=== PATIENT | male | born 1955 | race Caucasian/White ===

== ENCOUNTER 2019-07-29 09:48 | Emergency (ER) | payer OTHER ==
[~2019-07-29] VITALS: Ht 165.1 cm; Wt 43.1 kg
[2019-07-29 10:41] LABS: BASOPHILS ABSOLUTE AUTO 0.02 K/mm3 (0.00-0.23); BASOPHILS PERCENT AUTO 1 % (0-2); EOSINOPHILS ABSOLUTE AUTO 0.03 K/mm3 (0.00-0.68); EOSINOPHILS PERCENT AUTO 1 % (0-6); Hemoglobin 12.8 g/dL (13.5-17.5); IMMATURE GRAN ABSOLUTE AUTO 0.01 K/mm3 (0.00-0.10); IMMATURE GRAN PERCENT AUTO 0 % (0-1); LYMPHOCYTES PERCENT AUTO 32 % (21-46); MONOCYTES ABSOLUTE AUTO 0.57 K/mm3 (0.16-1.47); MONOCYTES PERCENT AUTO 15 % (4-13); Mean Corpuscular HGB Conc 33.7 g/dL (31.5-36.5); Mean Corpuscular Volume 98 fL (80-100); Mean Platelet Volume 12.4 fL (9.1-12.4); NEUTROPHILS ABSOLUTE AUTO 1.89 K/mm3 (1.96-9.15); NEUTROPHILS PERCENT AUTO 51 % (41-73); Platelet Count 87 K/mm3 (150-400); RDW Coefficient Variation 17.2 % (11.7-14.2); RDW Standard Deviation 62.3 fL (35.1-46.3); Red Blood Cell Count 3.88 M/mm3 (4.30-5.90); White Blood Cell Count 3.72 K/mm3 (4.00-11.30)
[2019-07-29 10:55] LABS: Albumin/Globulin Ratio 0.7 (0.8-1.8); Bilirubin, Total 0.5 mg/dL (0.1-1.0); Bun/Creatinine Ratio 26.7 (12.0-20.0); Creatinine, Blood 2.17 mg/dL (0.60-1.20); Globulin, Blood 4.4 g/dL (2.2-4.0); Potassium, Blood 4.4 mmol/L (3.5-5.5); Total Protein, Blood 7.4 g/dL (6.4-8.2)
[2019-07-29 11:19] LABS: Source, Urine Clean Catch
[2019-07-29 11:27] LABS: Appearance, Urine Clear (Clear); Bilirubin, Urine Neg (Neg); Blood, Urine Neg (Neg); Color, Urine Yellow (P-Yellow); Glucose Qualitative, Urine 2+ (Neg); Ketones, Urine 1+ (Neg); Leukocyte Esterase, Urine 1+ (Neg); Nitrite, Urine Neg (Neg); Protein, Urine Neg (Neg); Specific Gravity, Urine 1.015 (1.003-1.022); Urobilinogen, Urine 1+ (Normal)
[2019-07-29] MEDS ORDERED: ACET500 (11:58)
[2019-07-29] MEDS ORDERED: AMLO5 PO (11:59)
[2019-07-29] MEDS ORDERED: ALBU2.5V5 (11:59)
[2019-07-29] MEDS ORDERED: DIVA250ER PO (12:00)
[2019-07-29] MEDS ORDERED: BUDE10.22 INH (12:00)
[2019-07-29] MEDS ORDERED: Vitamin D2000 UNIT PO (12:00)
[2019-07-29 12:01] LABS: Bacteria Rare /hpf; Squamous Epithelial Cells Rare /hpf (Few); White Blood Cells, Urine 0-2 /hpf (0-5)
[2019-07-29] MEDS ORDERED: Zantac150 MG PO (12:01)
[2019-07-29] MEDS ORDERED: QUET300 PO (12:01)
== END 2019-07-29 13:46 | disposition home or self-care (01) ==
LOC: ER 09:48
PROVIDERS: Emergency Medicine
DX: R41.0 Disorientation, unspecified (principal); R53.1 Weakness; I10 Essential (primary) hypertension; F17.200 Nicotine dependence, unspecified, uncomplicated; Z88.5 Allergy status to narcotic agent; Z88.8 Allergy status to other drugs, medicaments and biological substances
CPT/HCPCS: 70450; 71046; 71250; 80053; 81001; 85025; 87086; 93005; 93010; 99285-25

== ENCOUNTER 2019-12-16 13:28 | Emergency (ER) | payer OTHER ==
[~2019-12-16] VITALS: Ht 160 cm; Wt 43.5 kg
[~2019-12-16 13:28] MED LIST: ACET500; ALBU2.5V5; AMLO5 PO; BUDE10.22 INH; DIVA250ER PO; Percocet 5-3251 EACH PO; QUET300 PO; Vitamin D2000 UNIT PO; Zantac150 MG PO
[2019-12-16] MEDS ORDERED: Vitamin D2000 UNIT PO (15:38)
[2019-12-16] MEDS ORDERED: DIVA250ER PO (15:38)
[2019-12-16] MEDS ORDERED: IBUP600 PO (16:44)
== END 2019-12-16 17:12 | disposition home or self-care (01) ==
LOC: ER 13:28
DX: S32.302A Unspecified fracture of left ilium, initial encounter for closed fracture (principal); I10 Essential (primary) hypertension; J44.9 Chronic obstructive pulmonary disease, unspecified; W17.89XA Other fall from one level to another, initial encounter
CPT/HCPCS: 36415; 72192; 73502; 99284-25; J1885

== ENCOUNTER 2020-09-29 08:53 | Inpatient (IN) | payer OTHER, MEDICARE ==
[~2020-09-29] VITALS: Ht 165.1 cm; Wt 41.7 kg
[~2020-09-29 08:53] MED LIST changes: +IBUP600 PO; -QUET300 PO
[2020-09-29 10:29] LABS: Hematocrit 40.2 % (37.0-53.0); Hemoglobin 13.2 g/dL (13.5-17.5); Mean Corpuscular HGB Conc 32.8 g/dL (31.5-36.5); Mean Corpuscular Volume 94 fL (80-100); Mean Platelet Volume 11.3 fL (9.1-12.4); Platelet Count 111 K/mm3 (150-400); RDW Coefficient Variation 15.1 % (11.7-14.2); RDW Standard Deviation 52.4 fL (35.1-46.3); Red Blood Cell Count 4.26 M/mm3 (4.30-5.90); White Blood Cell Count 8.42 K/mm3 (4.00-11.30)
[2020-09-29 10:35] LABS: International Normalized Ratio 0.93
[2020-09-29 10:38] LABS: Alanine Aminotransfer (ALT/SGP 16 U/L (12-78); Albumin, Blood 2.6 g/dL (3.4-5.0); Albumin/Globulin Ratio 0.6 (0.8-1.8); Alk Phos 81 U/L (50-136); Anion Gap 7 mmol/L (6-16); Aspartate Aminotrans (AST/SGOT 25 U/L (12-37); Bilirubin, Total 0.3 mg/dL (0.1-1.0); Blood Urea Nitrogen 86 mg/dL (8-24); Bun/Creatinine Ratio 19.5 (12.0-20.0); CO2, Blood 23 mmol/L (21-32); Calcium, Blood 8.1 mg/dL (8.5-10.1); Chloride, Blood 108 mmol/L (98-108); Creatinine, Blood 4.41 mg/dL (0.60-1.20); Ethanol (Alcohol), Blood, Med <3 mg/dL; Globulin, Blood 4.6 g/dL (2.2-4.0); Glomerular Filtration Rate 14 (60-); Glucose, Blood 79 mg/dL (70-99); Potassium, Blood 5.2 mmol/L (3.5-5.5); Sodium, Blood 138 mmol/L (136-145); Total Protein, Blood 7.2 g/dL (6.4-8.2)
[2020-09-29 11:06] LABS: BAND PERCENT MAN 10 % (0-8); BASOPHILS PERCENT MAN 0 % (0-2); EOSINOPHILS ABSOLUTE MAN 0.08 K/mm3 (0.00-0.68); EOSINOPHILS PERCENT MAN 1 % (0-6); LYMPHOCYTES ABSOLUTE MAN 1.34 K/mm3 (0.84-5.20); LYMPHOCYTES PERCENT MAN 16 % (21-46); MONOCYTES ABSOLUTE MAN 1.09 K/mm3 (0.16-1.47); MONOCYTES PERCENT MAN 13 % (4-13); NEUTROPHILS ABSOLUTE MAN 5.89 K/mm3 (1.96-9.15); SEG NEUTROPHILS PERCENT MAN 60 % (41-73); TOTAL CELLS COUNTED 100
[2020-09-29 12:28] LABS: U Amphetamine Screen Not Detected; U Barbituate Screen Not Detected; U Benzodiazapine Screen Not Detected; U Buprenorphine Screen Not Detected; U Cannabinoids Screen Not Detected; U Cocaine Screen Not Detected; U Methadone Screen Not Detected; U Methamphetamine Screen Not Detected; U Opiates Screen Not Detected; U Oxycodone Screen Not Detected; U Phencyclidine Screen Not Detected; U Propoxyphene Screen Not Detected
[2020-09-29 14:11] LABS: Source, Urine Clean Catch
[2020-09-29 14:17] LABS: Appearance, Urine Clear (Clear); Bilirubin, Urine Neg (Neg); Blood, Urine 1+ (Neg); Color, Urine Yellow (P-Yellow); Glucose Qualitative, Urine Neg (Neg); Ketones, Urine Neg (Neg); Leukocyte Esterase, Urine Neg (Neg); Nitrite, Urine Neg (Neg); Protein, Urine 1+ (Neg); Specific Gravity, Urine 1.015 (1.003-1.022); Urobilinogen, Urine NORM (Normal)
[2020-09-29 14:46] LABS: WBC Cast 0-2 /lpf (0)
[2020-09-29 14:47] LABS: Bacteria Few /hpf; Renal Epithelial Few /hpf (0-Rare); Squamous Epithelial Cells Few /hpf (Few)
[2020-09-29] MEDS ORDERED: Vitamin D2000 UNIT PO (15:37)
[2020-09-29] MEDS ORDERED: DIVA250ER PO ×2 (15:37→15:38)
[2020-09-29] MEDS ORDERED: QUET300 PO (15:37)
[2020-09-29] MEDS ORDERED: LISI5 PO (15:38)
--- NOTE | 2020-09-29 19:05 | NUR ---
SHIFT SUMMARY: PATIENT ADMIT (INPATIENT) FROM ED THIS SHIFT. PT ALERT; [place]; CONFUSED; CALM AND COOPERATIVE WITH CARE. LUNGS DIM; RT NOTIFIED OF CONT BIOX ORDER. SCATTERED ABRASIONS R/T GROUND LEVEL FALL 3X DAYS AGO. IV REHYDRATION CONTINUING. REPORT GIVEN TO ONCOMING RN.
[2020-09-29 20:23] LABS: Influenza A, PCR Negative (NEGATIVE); Influenza B, PCR Negative (NEGATIVE); Resp Syncytial Virus, PCR Negative (NEGATIVE); SARS-Cov-2 (COVID-19) PCR, MMC Negative (NEGATIVE)
--- NOTE | 2020-09-30 04:16 | NUR ---
SUMMARY PT HAD NO ACUTE ISSUES NOTED. PT WOULD BENEFIT FROM SPEECH EVAL. PT APPEARS TO BE A ASPIRATION RISK. PT HAS BEEN VOIDING VIA URINAL W/ HELP. PT CONFUSED BUT COOPERATIVE. PT HAS BEEN SLEEPING FOR MOST OF SHIFT. PT CURRENTLY SLEEPING AND IN NO DISTRESS. CALL LIGHT IN REACH AND BED ALARM ON.
[2020-09-30 05:13] LABS: BASOPHILS ABSOLUTE AUTO 0.02 K/mm3 (0.00-0.23); BASOPHILS PERCENT AUTO 0 % (0-2); EOSINOPHILS ABSOLUTE AUTO 0.01 K/mm3 (0.00-0.68); EOSINOPHILS PERCENT AUTO 0 % (0-6); Hematocrit 34.3 % (37.0-53.0); Hemoglobin 11.3 g/dL (13.5-17.5); IMMATURE GRAN ABSOLUTE AUTO 0.05 K/mm3 (0.00-0.10); IMMATURE GRAN PERCENT AUTO 1 % (0-1); LYMPHOCYTES ABSOLUTE AUTO 1.07 K/mm3 (0.84-5.20); LYMPHOCYTES PERCENT AUTO 19 % (21-46); MONOCYTES ABSOLUTE AUTO 0.59 K/mm3 (0.16-1.47); MONOCYTES PERCENT AUTO 11 % (4-13); Mean Corpuscular HGB 31.4 pg (26.0-34.0); Mean Corpuscular HGB Conc 32.9 g/dL (31.5-36.5); Mean Corpuscular Volume 95 fL (80-100); NEUTROPHILS ABSOLUTE AUTO 3.79 K/mm3 (1.96-9.15); NEUTROPHILS PERCENT AUTO 69 % (41-73); Platelet Count 77 K/mm3 (150-400); RDW Coefficient Variation 15.2 % (11.7-14.2); RDW Standard Deviation 53.6 fL (35.1-46.3); White Blood Cell Count 5.53 K/mm3 (4.00-11.30)
[2020-09-30 05:33] LABS: Albumin/Globulin Ratio 0.6 (0.8-1.8); Bilirubin, Total 0.3 mg/dL (0.1-1.0); Bun/Creatinine Ratio 26.7 (12.0-20.0); Calcium, Blood 7.8 mg/dL (8.5-10.1); Creatinine, Blood 2.73 mg/dL (0.60-1.20); Globulin, Blood 3.6 g/dL (2.2-4.0); Magnesium, Blood 2.5 mg/dL (1.6-2.4); Potassium, Blood 5.4 mmol/L (3.5-5.5); Total Protein, Blood 5.6 g/dL (6.4-8.2)
--- NOTE | 2020-09-30 15:46 | NUR ---
SUMMARY PT IS WEAK/FATIGUED, THIN FRAIL. BUE EXTREMELY WEAK, UNCOORDINATED. HE REQUIRES ASSIST TO EAT/DRINK W/O SPILLING. HE IS VERY [place]', CAREGIVER WAS ABLE TO FIND ONE OF HIS HEARING AIDES @ HOME & BROUGHT TO HOSP, MINIMAL IMPROVEMENT. SHE STTE UNABLE TO LOCATE HIS DENTURES, DIET CHANGED TO SOFT, FINGER FOODS. SHE STATE HIS MENTATION HAS IMPROVED SOMEWHAT FROM ADMIT. ORIENTED X2. HE IS PLEASANT/COOPERATIVE. DR WALKER STATE ENCEPHALOPATHY, HOPEFUL MENTATION WILL CONTINUE TO IMPROVE. INCREASE LR INFUSION TO 200ML/HR. VSS.
--- NOTE | 2020-09-30 19:46 | NUR ---
AWAKE, ASSISTED WITH URINAL. HARD OF HEARING. VERY UNSTEADY AND SHAKY WHEN SITTING AT BEDSIDE TO VOID. ASSISTED BACK TO BED. IVF INFUSING PER MD ORDERS -SEE MAR FOR DETAILS. CALL LIGHT IN REACH. BED ALARM ON. CAMERA ON.
--- NOTE | 2020-10-01 04:32 | NUR ---
SHIFT SUMMARY WAS AWAKE AT SHIFT COMMENCE, MADE A FEW ATTEMPTS TO GET OUT OF BED TO VOID, ASSISTED WITH URINAL. HAS BEEN RESTING QUIETLY WITH FEW INTERRUPTIONS SINCE. IVF OF LR INFUSING AT 200 ML/HR PER MD ORDERS. CALL LIGHT IN REACH. BED ALARM ON
[2020-10-01 06:35] LABS: BASOPHILS ABSOLUTE AUTO 0.04 K/mm3 (0.00-0.23); BASOPHILS PERCENT AUTO 1 % (0-2); EOSINOPHILS ABSOLUTE AUTO 0.01 K/mm3 (0.00-0.68); EOSINOPHILS PERCENT AUTO 0 % (0-6); Hematocrit 36.4 % (37.0-53.0); Hemoglobin 12.2 g/dL (13.5-17.5); IMMATURE GRAN ABSOLUTE AUTO 0.13 K/mm3 (0.00-0.10); IMMATURE GRAN PERCENT AUTO 2 % (0-1); LYMPHOCYTES ABSOLUTE AUTO 1.37 K/mm3 (0.84-5.20); LYMPHOCYTES PERCENT AUTO 21 % (21-46); MONOCYTES ABSOLUTE AUTO 1.21 K/mm3 (0.16-1.47); MONOCYTES PERCENT AUTO 18 % (4-13); Mean Corpuscular HGB 31.2 pg (26.0-34.0); Mean Corpuscular HGB Conc 33.5 g/dL (31.5-36.5); Mean Corpuscular Volume 93 fL (80-100); Mean Platelet Volume 11.9 fL (9.1-12.4); NEUTROPHILS ABSOLUTE AUTO 3.86 K/mm3 (1.96-9.15); NEUTROPHILS PERCENT AUTO 58 % (41-73); Platelet Count 66 K/mm3 (150-400); RDW Coefficient Variation 15.1 % (11.7-14.2); RDW Standard Deviation 51.8 fL (35.1-46.3); Red Blood Cell Count 3.91 M/mm3 (4.30-5.90); White Blood Cell Count 6.62 K/mm3 (4.00-11.30)
[2020-10-01 06:41] LABS: Bun/Creatinine Ratio 25.2 (12.0-20.0); Calcium, Blood 8.4 mg/dL (8.5-10.1); Creatinine, Blood 1.63 mg/dL (0.60-1.20); Potassium, Blood 4.6 mmol/L (3.5-5.5)
--- NOTE | 2020-10-01 15:21 | NUR ---
SUMMARY PT CONTINUES WEAK/FATIGUED, HAS BEEN UP FOR PT/OT & SIT UP ON BEDSIDE TO VOID OTHERWISE HE DECLINES OOB, REFUSES TO SIT UP IN CHAIR. WEAKNESS SOMEWHAT IMPROVED FROM PREVIOUS DAY. HE IS THIN/FRAIL, POOR DENTITION, POOR APPETITE. 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 ENCOURAGING ENSURE. AFFECT FLAT, MINIMAL VERBAL. HX SCHIZOPHRENIA, DEMENTIA. DR WALKER STATE UREMIA ENCEPHALOPATHY, GFR, BUN HAVE IMPROVED TODAY. DECREASE LR INFUSION TO 100 ML/HR. LOW GRADE TEMP THIS AM 100.1, TYLENOL GIVEN, 98.2. VSS.
--- NOTE | 2020-10-01 22:31 | NUR ---
HAS BEEN AWKAE OFTEN, CALLING OUT "I NEED TO PEE", ASSISTED WITH URINAL EACH TIME. VOIDING ABOUT 40 - 100 ML EACH VOIDING. IVF OF LR INFUSING AT 100 ML/HR PER MD ORDERS. CALL LIGHT IN REACH
--- NOTE | 2020-10-02 04:11 | NUR ---
SHIF SUMMARY AWAKE AT INTERVALS TO VOID, CONTINUES TO CALL OUT IN SOMEWHAT OF A PANIC WHILE DOING SO. IV OF LR INFUSING AT 100 ML/HR. HAS BEEN USING THE URINAL WITH ASSIST AND AT TIMES INCONT AND CHANGED. CURRENTLY RESTING QUIETLY. NO NOTED S/S OF ACUTE DISTRESS. CALL LIGHT IN REACH
[2020-10-02 05:21] LABS: BASOPHILS ABSOLUTE AUTO 0.05 K/mm3 (0.00-0.23); BASOPHILS PERCENT AUTO 1 % (0-2); EOSINOPHILS ABSOLUTE AUTO 0.02 K/mm3 (0.00-0.68); EOSINOPHILS PERCENT AUTO 0 % (0-6); Hematocrit 37.5 % (37.0-53.0); Hemoglobin 12.6 g/dL (13.5-17.5); IMMATURE GRAN ABSOLUTE AUTO 0.25 K/mm3 (0.00-0.10); IMMATURE GRAN PERCENT AUTO 3 % (0-1); LYMPHOCYTES ABSOLUTE AUTO 1.46 K/mm3 (0.84-5.20); LYMPHOCYTES PERCENT AUTO 18 % (21-46); MONOCYTES ABSOLUTE AUTO 1.84 K/mm3 (0.16-1.47); MONOCYTES PERCENT AUTO 22 % (4-13); Mean Corpuscular HGB 30.8 pg (26.0-34.0); Mean Corpuscular HGB Conc 33.6 g/dL (31.5-36.5); Mean Corpuscular Volume 92 fL (80-100); Mean Platelet Volume 10.7 fL (9.1-12.4); NEUTROPHILS PERCENT AUTO 56 % (41-73); Platelet Count 55 K/mm3 (150-400); RDW Coefficient Variation 14.6 % (11.7-14.2); RDW Standard Deviation 49.1 fL (35.1-46.3); Red Blood Cell Count 4.09 M/mm3 (4.30-5.90); White Blood Cell Count 8.22 K/mm3 (4.00-11.30)
[2020-10-02 05:45] LABS: Anion Gap 6 mmol/L (6-16); Blood Urea Nitrogen 24 mg/dL (8-24); Bun/Creatinine Ratio 19.5 (12.0-20.0); CO2, Blood 28 mmol/L (21-32); Calcium, Blood 8.5 mg/dL (8.5-10.1); Chloride, Blood 102 mmol/L (98-108); Creatinine, Blood 1.23 mg/dL (0.60-1.20); Glomerular Filtration Rate >60 (60-); Glucose, Blood 83 mg/dL (70-99); Sodium, Blood 136 mmol/L (136-145)
[2020-10-02] MEDS ORDERED: ACET325 PO (14:36)
[2020-10-02] MEDS ORDERED: NIFE30ER PO (14:37)
[2020-10-02] MEDS ORDERED: IPRAT-ALBUT 0.5-3 ML INH (14:38)
[2020-10-02 15:54] LABS: Influenza A, PCR Negative (NEGATIVE); Influenza B, PCR Negative (NEGATIVE); Resp Syncytial Virus, PCR Negative (NEGATIVE); SARS-Cov-2 (COVID-19) PCR, MMC Negative (NEGATIVE)
[2020-10-02 16:40] LABS: Source, Urine Voided
[2020-10-02 16:42] LABS: Appearance, Urine Clear (Clear); Bilirubin, Urine Neg (Neg); Blood, Urine Neg (Neg); Color, Urine Yellow (P-Yellow); Glucose Qualitative, Urine Neg (Neg); Ketones, Urine 1+ (Neg); Leukocyte Esterase, Urine Neg (Neg); Nitrite, Urine Neg (Neg); Protein, Urine Neg (Neg); Specific Gravity, Urine 1.015 (1.003-1.022); Urobilinogen, Urine NORM (Normal)
--- NOTE | 2020-10-02 18:46 | NUR ---
PT IS IN BED RESTING, ATE 5-10% OF EACH MEAL, IS AFEBRILE AFTER MEDS, URINARY URGENCY CONTINUES QHOUR WITH 25-50 ML EACH OUTPUT. PT OREINTED TO SELF X1 AND PER CAREGIVER BELOW BASELINE (INDEPENDENT AT HOME). WAITING FOR UA RESULTS. STAFF WILL CONT. TO MONITOR FOR CHANGES.
--- NOTE | 2020-10-03 04:11 | NUR ---
SHIFT SUMMARY NO ACUTE CHANGES THIS SHIFT. PT CALLS OUT "I NEED TO PEE" OFTEN IN A PANICKED TONE, ONLY VOIDING 25-50ML AT A TIME. PT TRIED TO GET OOB ONE TIME STATING "I HAVE TO GO TO THE EMERGENCY ROOM." WHEN REORIENTED TO ROOM, PT CALMED AND WAS ABLE TO GET BACK INTO BED AND GO TO SLEEP. PT IS CURRENTLY LAYING IN BED WITH EYES CLOSED, EVEN AND UNLABORED RESPIRATIONS. BED IS IN LOWERED POSITION WITH ALARM IN PLACE. CALL LIGHT AND PERSONAL ITEMS WITH IN REACH. NO APPARENT NEEDS OR DISTRESS AT THIS TIME, WILL CONTINUE TO MONITOR UNTIL REPORT GIVEN TO DAY RN.
[2020-10-03 05:16] LABS: BASOPHILS ABSOLUTE AUTO 0.06 K/mm3 (0.00-0.23); BASOPHILS PERCENT AUTO 1 % (0-2); EOSINOPHILS ABSOLUTE AUTO 0.09 K/mm3 (0.00-0.68); EOSINOPHILS PERCENT AUTO 1 % (0-6); Hematocrit 32.9 % (37.0-53.0); Hemoglobin 11.3 g/dL (13.5-17.5); IMMATURE GRAN ABSOLUTE AUTO 0.24 K/mm3 (0.00-0.10); IMMATURE GRAN PERCENT AUTO 4 % (0-1); LYMPHOCYTES ABSOLUTE AUTO 1.67 K/mm3 (0.84-5.20); LYMPHOCYTES PERCENT AUTO 25 % (21-46); MONOCYTES ABSOLUTE AUTO 1.16 K/mm3 (0.16-1.47); MONOCYTES PERCENT AUTO 17 % (4-13); Mean Corpuscular HGB 31.7 pg (26.0-34.0); Mean Corpuscular HGB Conc 34.3 g/dL (31.5-36.5); Mean Corpuscular Volume 92 fL (80-100); Mean Platelet Volume 10.6 fL (9.1-12.4); NEUTROPHILS ABSOLUTE AUTO 3.54 K/mm3 (1.96-9.15); NEUTROPHILS PERCENT AUTO 52 % (41-73); RDW Coefficient Variation 14.3 % (11.7-14.2); RDW Standard Deviation 48.2 fL (35.1-46.3); Red Blood Cell Count 3.56 M/mm3 (4.30-5.90); White Blood Cell Count 6.76 K/mm3 (4.00-11.30)
[2020-10-03 05:27] LABS: Platelet Count 41 K/mm3 (150-400)
[2020-10-03 05:47] LABS: Anion Gap 5 mmol/L (6-16); Blood Urea Nitrogen 24 mg/dL (8-24); Bun/Creatinine Ratio 19.2 (12.0-20.0); CO2, Blood 29 mmol/L (21-32); Calcium, Blood 8.5 mg/dL (8.5-10.1); Chloride, Blood 104 mmol/L (98-108); Creatinine, Blood 1.25 mg/dL (0.60-1.20); Glomerular Filtration Rate >60 (60-); Glucose, Blood 84 mg/dL (70-99); Potassium, Blood 3.7 mmol/L (3.5-5.5); Sodium, Blood 138 mmol/L (136-145)
--- NOTE | 2020-10-03 06:42 | NUR ---
CRITICAL LAB RESULT DR. LIMA CALLED BACK, NO NEW ORDERS.
--- NOTE | 2020-10-03 16:43 | NUR ---
SHIFT SUMMARY PT SLEEPING FOR FIRST PART OF SHIFT, WAKING HOURLY TO URGENTLY VOID SMALL AMOUNT OF URINE. VSS. PT BECAME MORE ALERT WITH HIS CAREGIVER IN THE ROOM. AT THAT TIME PATIENT WAS ABLE TO NAME THE STREET HE LIVES ON AND NAMES OF PETS. CONTINUES TO HAVE POOR APPETITE. IV PATENT AND INFUSING PER EMAR. BED IN LOW POSITION, CALL LIGHT WITHIN REACH. BED ALARM ON.
--- NOTE | 2020-10-04 04:09 | NUR ---
SHIFT SUMMARY NO ACUTE CHANGES THIS SHIFT. PT HAS SLEPT WELL T/O NIGHT, WITH OCCASIONAL EPISODES OF CALLING OUT "I NEED TO PEE." OTHERWISE NO OTHER COMPLAINTS. PT IS LAYING IN BED WITH EYES CLOSED, EVEN AND UNLABORED RESPIRATIONS. BED IN LOWERED POSITION WITH ALARM IN PLACE. CALL LIGHT AND PERSONAL ITEMS WITH IN REACH. NO APPARENT NEEDS OR DISTRESS AT THIS TIME, WILL CONTINUE TO MONITOR UNTIL REPORT GIVEN TO DAY RN.
[2020-10-04 04:57] LABS: BASOPHILS ABSOLUTE AUTO 0.03 K/mm3 (0.00-0.23); BASOPHILS PERCENT AUTO 0 % (0-2); EOSINOPHILS ABSOLUTE AUTO 0.08 K/mm3 (0.00-0.68); EOSINOPHILS PERCENT AUTO 1 % (0-6); Hematocrit 27.6 % (37.0-53.0); Hemoglobin 9.2 g/dL (13.5-17.5); IMMATURE GRAN PERCENT AUTO 3 % (0-1); LYMPHOCYTES ABSOLUTE AUTO 1.71 K/mm3 (0.84-5.20); LYMPHOCYTES PERCENT AUTO 22 % (21-46); MONOCYTES ABSOLUTE AUTO 1.12 K/mm3 (0.16-1.47); MONOCYTES PERCENT AUTO 14 % (4-13); Mean Corpuscular HGB 31.1 pg (26.0-34.0); Mean Corpuscular HGB Conc 33.3 g/dL (31.5-36.5); Mean Corpuscular Volume 93 fL (80-100); Mean Platelet Volume 9.6 fL (9.1-12.4); NEUTROPHILS ABSOLUTE AUTO 4.64 K/mm3 (1.96-9.15); NEUTROPHILS PERCENT AUTO 60 % (41-73); Platelet Count 51 K/mm3 (150-400); RDW Coefficient Variation 14.5 % (11.7-14.2); RDW Standard Deviation 49.9 fL (35.1-46.3); Red Blood Cell Count 2.96 M/mm3 (4.30-5.90); White Blood Cell Count 7.78 K/mm3 (4.00-11.30)
[2020-10-04 13:06] LABS: BASOPHILS ABSOLUTE AUTO 0.04 K/mm3 (0.00-0.23); BASOPHILS PERCENT AUTO 1 % (0-2); EOSINOPHILS ABSOLUTE AUTO 0.14 K/mm3 (0.00-0.68); EOSINOPHILS PERCENT AUTO 2 % (0-6); Hematocrit 31.3 % (37.0-53.0); Hemoglobin 10.6 g/dL (13.5-17.5); IMMATURE GRAN ABSOLUTE AUTO 0.19 K/mm3 (0.00-0.10); IMMATURE GRAN PERCENT AUTO 2 % (0-1); LYMPHOCYTES ABSOLUTE AUTO 1.11 K/mm3 (0.84-5.20); LYMPHOCYTES PERCENT AUTO 13 % (21-46); MONOCYTES ABSOLUTE AUTO 1.27 K/mm3 (0.16-1.47); MONOCYTES PERCENT AUTO 14 % (4-13); Mean Corpuscular HGB 31.6 pg (26.0-34.0); Mean Corpuscular HGB Conc 33.9 g/dL (31.5-36.5); Mean Corpuscular Volume 93 fL (80-100); Mean Platelet Volume 10.7 fL (9.1-12.4); NEUTROPHILS ABSOLUTE AUTO 6.08 K/mm3 (1.96-9.15); NEUTROPHILS PERCENT AUTO 69 % (41-73); Platelet Count 71 K/mm3 (150-400); RDW Coefficient Variation 14.4 % (11.7-14.2); RDW Standard Deviation 49.1 fL (35.1-46.3); Red Blood Cell Count 3.35 M/mm3 (4.30-5.90); White Blood Cell Count 8.83 K/mm3 (4.00-11.30)
--- NOTE | 2020-10-04 14:48 | NUR ---
Clinical Visit: Pt admitted with altered mental status. Palliative consult to address code status and advanced care planning. Pt is sitting up in bed. He smiles. He is wearing glasses and one hearing aid. He is conversing with his caregiver, Flavia. The appear to have an easy rapport. Discussed with Flavia: Pt usually is ambulatory independently. He is able to eat food, take showers, independently. He is not incontinent at baseline. He has a poor appetite at home, but refuses to take appetite stimulators. Reviewed code status. Flavia reports that the pt decided on full code a long time ago. She states he has told her that he wants to live. Reviewed POLST form and advance directives. She does not want to fill out a POLST form for him at this time, since she knows his wishes. Reviewed advance directive document. Flavia believes this to be a more appropriate form for him to fill out after this is explained to her. She agrees to take the form home to address it when he is feeling better. Instructed that the form also has a place to appoint healthcare representatives. She reports that this would be helpful. No other concerns at this time. No follow up needed at this time unless other issues arise.
--- NOTE | 2020-10-04 17:13 | NUR ---
NO ACUTE CHANGES THIS SHIFT. HE HAS BEEN QUIET MOST OF THE SHIFT WITH NO COMPLAINTS. HE WILL ON OCCASSION CALL OUT THAT HE HAS TO PEE IN WHICH HE IS HELPED WITH THE URINAL. CAREGIVER WAS IN ROOM THIS SHIFT. CALL LIGHT IN REACH.
--- NOTE | 2020-10-05 04:56 | NUR ---
10/05/20 0500 PT SLEEPING WELL THIS SHIFT. DENIES ANY DISCOMFORT. VITALS STABLE. CONDOM CATH APPLIED EARLIER AND WORKING WELL TO COLLECT URINE. JAS-CARE GIVEN PRN. ORAL INTAKE BETTER TONIGHT FROM PREVIOUS NIGHT. UNEVENTFUL NIGHT.
[2020-10-05 05:22] LABS: BASOPHILS ABSOLUTE AUTO 0.04 K/mm3 (0.00-0.23); BASOPHILS PERCENT AUTO 0 % (0-2); EOSINOPHILS ABSOLUTE AUTO 0.25 K/mm3 (0.00-0.68); EOSINOPHILS PERCENT AUTO 3 % (0-6); Hematocrit 29.8 % (37.0-53.0); IMMATURE GRAN ABSOLUTE AUTO 0.18 K/mm3 (0.00-0.10); IMMATURE GRAN PERCENT AUTO 2 % (0-1); LYMPHOCYTES ABSOLUTE AUTO 1.69 K/mm3 (0.84-5.20); LYMPHOCYTES PERCENT AUTO 18 % (21-46); MONOCYTES ABSOLUTE AUTO 1.25 K/mm3 (0.16-1.47); MONOCYTES PERCENT AUTO 13 % (4-13); Mean Corpuscular HGB 31.5 pg (26.0-34.0); Mean Corpuscular HGB Conc 33.6 g/dL (31.5-36.5); Mean Corpuscular Volume 94 fL (80-100); Mean Platelet Volume 11.4 fL (9.1-12.4); NEUTROPHILS ABSOLUTE AUTO 6.21 K/mm3 (1.96-9.15); NEUTROPHILS PERCENT AUTO 65 % (41-73); Platelet Count 96 K/mm3 (150-400); RDW Coefficient Variation 14.1 % (11.7-14.2); RDW Standard Deviation 48.2 fL (35.1-46.3); Red Blood Cell Count 3.17 M/mm3 (4.30-5.90); White Blood Cell Count 9.62 K/mm3 (4.00-11.30)
[2020-10-05 05:32] LABS: Anion Gap 4 mmol/L (6-16); Blood Urea Nitrogen 24 mg/dL (8-24); Bun/Creatinine Ratio 24.1 (12.0-20.0); CO2, Blood 33 mmol/L (21-32); Calcium, Blood 8.5 mg/dL (8.5-10.1); Chloride, Blood 101 mmol/L (98-108); Glomerular Filtration Rate >60 (60-); Glucose, Blood 84 mg/dL (70-99); Potassium, Blood 3.8 mmol/L (3.5-5.5); Sodium, Blood 138 mmol/L (136-145)
[2020-10-05 05:42] LABS: BASOPHILS PERCENT MAN 0 % (0-2); EOSINOPHILS ABSOLUTE MAN 0.38 K/mm3 (0.00-0.68); EOSINOPHILS PERCENT MAN 4 % (0-6); LYMPHOCYTES ABSOLUTE MAN 1.05 K/mm3 (0.84-5.20); LYMPHOCYTES PERCENT MAN 11 % (21-46); MONOCYTES ABSOLUTE MAN 1.05 K/mm3 (0.16-1.47); MONOCYTES PERCENT MAN 11 % (4-13); NEUTROPHILS ABSOLUTE MAN 7.11 K/mm3 (1.96-9.15); SEG NEUTROPHILS PERCENT MAN 74 % (41-73); TOTAL CELLS COUNTED 100
--- NOTE | 2020-10-05 16:37 | NUR ---
SHIFT SUMMARY- PT A/OX1 SELF ONLY. PT COOPERATIVE WITH CARE. PT DENIES ANY COMPLAINTS T/O THE DAY. LS CLEAR/ DIMINISHED, ON RA. MOIST NPC. CONDOM CATH IN PLACE DRAINING CLEAR YELLOW URINE. POSSIBLE D/C TO SNF TOMORROW.
--- NOTE | 2020-10-06 07:29 | NUR ---
10/06/20 0500 PT REFUSED TO DRINK MORE THAN COUPLE OF SIPS OF FLUID AT A TIME. STRESSED IMPORTANCE OF NUTRITION AND HYDRATION BUT UNINTERESTED. VITALS STABLE. TURNED Q 2 HOURS. CONDOM CATH FELL OFF TWICE THIS SHIFT AND NEW ONE APPLIED. SLEPT POORLY AND INSISTED ON WATCHING TV MOST OF NIGHT.
[2020-10-06 15:03] LABS: Influenza A, PCR Negative (NEGATIVE); Influenza B, PCR Negative (NEGATIVE); Resp Syncytial Virus, PCR Negative (NEGATIVE); SARS-Cov-2 (COVID-19) PCR, MMC Negative (NEGATIVE)
--- NOTE | 2020-10-06 16:39 | NUR ---
REPORT GIVEN TO SASHA VERDIN @ [facility] @ 5502. IV HAS BEEN REMOVED, PT IS DRESSED AND WAITING FOR TRANSPORT.
--- NOTE | 2020-10-06 17:39 | NUR ---
PT DISCHARGED @ APPROX 1735 BY [facility] TO [facility]. PT AMBULATED WELL TO WHEELCHAIR AND BELONGINGS WERE HANDED TO PT. PT HAD HIS HEARING AID IN HIS LEFT EAR AND HIS DENTURES IN AT TIME OF DISCHARGE. PAPERWORK WAS GIVEN TO TRANSPORT. IV SITE WAS DC'D PRIOR TO TRANSPORT ARRIVING AND SITE LOOKED TO BE WITH[facility]ORMAL LIMITS [facility] REPORT WAS CALLED AT APPROX 1630 TO SASHA VERDIN @ [facility].
== END 2020-10-06 17:38 | DRG 682 ==
LOC: ER 08:53 → MEDS 15:51 → ERHOLD 15:51 → MEDS 17:52
PROVIDERS: Emergency Medicine; Family Medicine; Hospitalist; Physician Assistant; ADMIT Internal Medicine
DX: N17.9 Acute kidney failure, unspecified (principal); E43 Unspecified severe protein-calorie malnutrition; G92 Toxic encephalopathy; Z68.1 Body mass index [BMI] 19.9 or less, adult; T39.311A Poisoning by propionic acid derivatives, accidental (unintentional), initial encounter; Z20.828 Contact with and (suspected) exposure to other viral communicable diseases; N18.4 Chronic kidney disease, stage 4 (severe); F20.9 Schizophrenia, unspecified; I12.9 Hypertensive chronic kidney disease with stage 1 through stage 4 chronic kidney disease, or unspecified chronic kidney disease; D63.1 Anemia in chronic kidney disease; D69.6 Thrombocytopenia, unspecified; F01.50 Vascular dementia, unspecified severity, without behavioral disturbance, psychotic disturbance, mood disturbance, and anxiety; Z87.891 Personal history of nicotine dependence; J43.9 Emphysema, unspecified; R50.9 Fever, unspecified
CPT/HCPCS: 0241U; 36415; 70450; 71045; 72100; 76700; 80048; 80053; 81001; 81003; 83735; 85025; 85610; 85730; 87040; 87086; 92610; 93005; 93010; 94640; 94760; 94762; 96360; 96361; 97110; 97116; 97162; 97166; 97530; 97535; 99285-25; A9270; G0480; J1644; J7030; J7120; Q2038

== ENCOUNTER 2021-12-03 08:00 | Emergency (ER) | payer OTHER ==
[~2021-12-03] VITALS: Ht 165.1 cm; Wt 45.4 kg
[~2021-12-03 08:00] MED LIST changes: +ACET325 PO; +IPRAT-ALBUT 0.5-3 ML INH; +LISI5 PO; +NIFE30ER PO; +QUET300 PO
[2021-12-03 09:12] LABS: BASOPHILS ABSOLUTE AUTO 0.02 K/mm3 (0.00-0.23); BASOPHILS PERCENT AUTO 0 % (0-2); EOSINOPHILS PERCENT AUTO 0 % (0-6); Hematocrit 39.3 % (37.0-53.0); IMMATURE GRAN ABSOLUTE AUTO 0.02 K/mm3 (0.00-0.10); IMMATURE GRAN PERCENT AUTO 0 % (0-1); LYMPHOCYTES ABSOLUTE AUTO 1.78 K/mm3 (0.84-5.20); LYMPHOCYTES PERCENT AUTO 22 % (21-46); MONOCYTES ABSOLUTE AUTO 1.96 K/mm3 (0.16-1.47); MONOCYTES PERCENT AUTO 24 % (4-13); Mean Corpuscular HGB 32.1 pg (26.0-34.0); Mean Corpuscular HGB Conc 33.1 g/dL (31.5-36.5); Mean Corpuscular Volume 97 fL (80-100); Mean Platelet Volume 11.8 fL (9.1-12.4); NEUTROPHILS ABSOLUTE AUTO 4.48 K/mm3 (1.96-9.15); NEUTROPHILS PERCENT AUTO 54 % (41-73); Platelet Count 105 K/mm3 (150-400); RDW Coefficient Variation 14.1 % (11.7-14.2); RDW Standard Deviation 50.8 fL (35.1-46.3); Red Blood Cell Count 4.05 M/mm3 (4.30-5.90); White Blood Cell Count 8.26 K/mm3 (4.00-11.30)
[2021-12-03 09:28] LABS: Alanine Aminotransfer (ALT/SGP 41 U/L (12-78); Albumin, Blood 2.8 g/dL (3.4-5.0); Albumin/Globulin Ratio 0.7 (0.8-1.8); Alk Phos 62 U/L (50-136); Anion Gap 9 mmol/L (6-16); Aspartate Aminotrans (AST/SGOT 52 U/L (12-37); Bilirubin, Total 0.3 mg/dL (0.1-1.0); Blood Urea Nitrogen 56 mg/dL (8-24); Bun/Creatinine Ratio 28.3 (12.0-20.0); CO2, Blood 24 mmol/L (21-32); Chloride, Blood 103 mmol/L (98-108); Creatinine, Blood 1.98 mg/dL (0.60-1.20); Globulin, Blood 4.1 g/dL (2.2-4.0); Glomerular Filtration Rate 34 (60-); Glucose, Blood 116 mg/dL (70-99); Sodium, Blood 136 mmol/L (136-145); Total Protein, Blood 6.9 g/dL (6.4-8.2); Troponin I <0.015 ng/mL (0.000-0.040)
[2021-12-03 11:14] LABS: Source, Urine Clean Catch
[2021-12-03 11:18] LABS: Appearance, Urine Clear (Clear); Bilirubin, Urine Neg (Neg); Blood, Urine Neg (Neg); Color, Urine Yellow (P-Yellow); Glucose Qualitative, Urine 2+ (Neg); Ketones, Urine 1+ (Neg); Leukocyte Esterase, Urine Neg (Neg); Nitrite, Urine Neg (Neg); Protein, Urine 2+ (Neg); Urobilinogen, Urine NORM (Normal)
[2021-12-03 11:39] LABS: Amorphous Light (0-Heavy); Bacteria Rare /hpf; Squamous Epithelial Cells Rare /hpf (Few); White Blood Cells, Urine 0-2 /hpf (0-5)
[2021-12-03] MEDS ORDERED: ONDA4ODT MM (12:08)
== END 2021-12-03 12:30 | disposition home or self-care (01) ==
LOC: ER 08:00
PROVIDERS: Emergency Medicine
DX: U07.1 COVID-19 (principal); E86.0 Dehydration; J43.9 Emphysema, unspecified; Z79.899 Other long term (current) drug therapy
CPT/HCPCS: 36415; 51701; 71045; 80053; 81001; 83690; 84484; 85025; 93005; 93010; 96374; 99285-25; A9270; J2405; J7030

== ENCOUNTER 2021-12-06 17:09 | Emergency (ER) | payer OTHER ==
[~2021-12-06] VITALS: Ht 165.1 cm; Wt 45.4 kg
[~2021-12-06 17:09] MED LIST changes: +ONDA4ODT MM
[2021-12-06 18:36] LABS: BASOPHILS ABSOLUTE AUTO 0.02 K/mm3 (0.00-0.23); BASOPHILS PERCENT AUTO 1 % (0-2); EOSINOPHILS ABSOLUTE AUTO 0.01 K/mm3 (0.00-0.68); EOSINOPHILS PERCENT AUTO 0 % (0-6); Hematocrit 35.8 % (37.0-53.0); Hemoglobin 11.7 g/dL (13.5-17.5); IMMATURE GRAN ABSOLUTE AUTO 0.03 K/mm3 (0.00-0.10); IMMATURE GRAN PERCENT AUTO 1 % (0-1); LYMPHOCYTES ABSOLUTE AUTO 0.89 K/mm3 (0.84-5.20); LYMPHOCYTES PERCENT AUTO 24 % (21-46); MONOCYTES ABSOLUTE AUTO 0.76 K/mm3 (0.16-1.47); MONOCYTES PERCENT AUTO 20 % (4-13); Mean Corpuscular HGB 31.8 pg (26.0-34.0); Mean Corpuscular HGB Conc 32.7 g/dL (31.5-36.5); Mean Corpuscular Volume 97 fL (80-100); Mean Platelet Volume 11.5 fL (9.1-12.4); NEUTROPHILS ABSOLUTE AUTO 2.03 K/mm3 (1.96-9.15); NEUTROPHILS PERCENT AUTO 54 % (41-73); Platelet Count 131 K/mm3 (150-400); RDW Coefficient Variation 13.6 % (11.7-14.2); RDW Standard Deviation 49.1 fL (35.1-46.3); Red Blood Cell Count 3.68 M/mm3 (4.30-5.90); White Blood Cell Count 3.74 K/mm3 (4.00-11.30)
[2021-12-06 18:37] LABS: Alanine Aminotransfer (ALT/SGP 24 U/L (12-78); Albumin, Blood 2.6 g/dL (3.4-5.0); Albumin/Globulin Ratio 0.6 (0.8-1.8); Alk Phos 62 U/L (50-136); Anion Gap 5 mmol/L (6-16); Aspartate Aminotrans (AST/SGOT 39 U/L (12-37); Bilirubin, Total 0.3 mg/dL (0.1-1.0); Blood Urea Nitrogen 27 mg/dL (8-24); Bun/Creatinine Ratio 23.3 (12.0-20.0); CO2, Blood 28 mmol/L (21-32); Calcium, Blood 8.5 mg/dL (8.5-10.1); Chloride, Blood 100 mmol/L (98-108); Creatinine, Blood 1.16 mg/dL (0.60-1.20); Glomerular Filtration Rate >60 (60-); Glucose, Blood 98 mg/dL (70-99); Potassium, Blood 4.7 mmol/L (3.5-5.5); Sodium, Blood 133 mmol/L (136-145); Total Protein, Blood 6.6 g/dL (6.4-8.2)
== END 2021-12-06 21:09 | disposition home or self-care (01) ==
LOC: ER 17:09
PROVIDERS: Physician Assistant
DX: U07.1 COVID-19 (principal); J43.9 Emphysema, unspecified; Z79.899 Other long term (current) drug therapy
CPT/HCPCS: 36415; 80053; 83690; 83880; 84484; 85025; 93005; 93010; 99285-25

== ENCOUNTER 2022-08-30 09:02 | Inpatient (IN) | payer OTHER ==
[~2022-08-30] VITALS: Ht 162.6 cm; Wt 42.6 kg
[2022-08-30 09:37] LABS: Hematocrit 41.3 % (37.0-53.0); Hemoglobin 13.3 g/dL (13.5-17.5); LYMPHOCYTES ABSOLUTE AUTO 0.32 K/mm3 (0.84-5.20); LYMPHOCYTES PERCENT AUTO 6 % (21-46); MONOCYTES ABSOLUTE AUTO 0.79 K/mm3 (0.16-1.47); MONOCYTES PERCENT AUTO 14 % (4-13); Mean Corpuscular HGB 30.9 pg (26.0-34.0); Mean Corpuscular HGB Conc 32.2 g/dL (31.5-36.5); Mean Corpuscular Volume 96 fL (80-100); Mean Platelet Volume 11.2 fL (9.1-12.4); Platelet Count 158 K/mm3 (150-400); RDW Coefficient Variation 14.9 % (11.7-14.2); RDW Standard Deviation 52.5 fL (35.1-46.3); White Blood Cell Count 5.75 K/mm3 (4.00-11.30)
[2022-08-30 09:39] LABS: BASOPHILS ABSOLUTE AUTO 0.01 K/mm3 (0.00-0.23); BASOPHILS PERCENT AUTO 0 % (0-2); EOSINOPHILS PERCENT AUTO 0 % (0-6); IMMATURE GRAN PERCENT AUTO 2 % (0-1); NEUTROPHILS ABSOLUTE AUTO 4.53 K/mm3 (1.96-9.15); NEUTROPHILS PERCENT AUTO 79 % (41-73)
[2022-08-30] MEDS ORDERED: LEVSOD25 PO (09:44)
[2022-08-30 09:48] LABS: Albumin, Blood 2.5 g/dL (3.4-5.0); Albumin/Globulin Ratio 0.5 (0.8-1.8); Bilirubin, Total 0.4 mg/dL (0.1-1.0); Bun/Creatinine Ratio 30.4 (12.0-20.0); Calcium, Blood 9.6 mg/dL (8.5-10.1); Creatinine, Blood 1.61 mg/dL (0.60-1.20); Globulin, Blood 4.6 g/dL (2.2-4.0); Potassium, Blood 4.6 mmol/L (3.5-5.5); Total Protein, Blood 7.1 g/dL (6.4-8.2)
[2022-08-30 11:00] LABS: Influenza A, PCR NEGATIVE (NEGATIVE); Influenza B, PCR NEGATIVE (NEGATIVE); Resp Syncytial Virus, PCR NEGATIVE (NEGATIVE); SARS-Cov-2 (COVID-19) PCR, MMC NEGATIVE (NEGATIVE)
[2022-08-30 12:28] LABS: Base Excess Venous 3.2 mmol/L; Bicarbonate Venous 25.5 mmol/L (24.0-30.0); PCO2 Venous 49.6 mmHg (38-42); pH Blood Venous 7.37 (7.34-7.37)
--- NOTE | 2022-08-30 17:20 | NUR ---
RECEIVED FROM ED 1610: RECEIVED REPORT FROM POONAM BAEZ. 1635: RECEIVED PT FROM ED VIA GURNEY, PLACED IN BED, MADE COMFORTABLE, ORIENTED TO ROOM & UNIT ROUTINE. VSS. PT CONFUSED AND UNABLE TO PROVIDE ANY INFORMATION TO FULLY COMPLETE MEDICAL HISTORY. CALL LIGHT WITHIN REACH. WILL CONTINUE TO MONITOR.
--- NOTE | 2022-08-30 18:36 | NUR ---
SHIFT SUMMARY PT A&O X2. VSS. MI[place]KMAQ. IS 1 PERSON MIN ASSIST FOR BSC & TO THE CHAIR. REMAINS CONFUSED THOUGH IS EASILY REDIRECTED. IS RESTING WITH EYES CLOSED. RESP EVEN & UNLABORED ON 1 L O2 VIA N/C.
--- NOTE | 2022-08-31 05:46 | NUR ---
NOC SHIFT SUMMARY: PT AOX4, O2 NC 3L, VSS, PT COOPERATIVE WITH CARE. PT RESTED WELL DURING NOC SHIFT. ABLE TO MAKE NEEDS KNOWN. USES CALL LIGHT APPROPRIATELY. MEDICATIONS ADMIN PER ORDERS AND PO TAKEN WHOLE. PT. OOB TO BSC 1XASSIST TO VOID. OCCASIONAL CONJESTED NON-PRODUCTIVE COUGH. BED ALARM SET, 3X BED RAILS UP, BED IN LOW AND LOCKED POSITION, CALL LIGHT AND FLUIDS IN REACH.
[2022-08-31 07:16] LABS: Hematocrit 39.3 % (37.0-53.0); Hemoglobin 12.6 g/dL (13.5-17.5); Mean Corpuscular HGB 30.8 pg (26.0-34.0); Mean Corpuscular HGB Conc 32.1 g/dL (31.5-36.5); Mean Corpuscular Volume 96 fL (80-100); Mean Platelet Volume 11.3 fL (9.1-12.4); NRBC ABSOLUTE 0.05 K/mm3 (0.00-0.02); NRBC Auto 0.6 /100 WBC (0.0-0.2); Platelet Count 151 K/mm3 (150-400); RDW Coefficient Variation 14.8 % (11.7-14.2); RDW Standard Deviation 52.3 fL (35.1-46.3); Red Blood Cell Count 4.09 M/mm3 (4.30-5.90); White Blood Cell Count 8.65 K/mm3 (4.00-11.30)
[2022-08-31 07:39] LABS: Bun/Creatinine Ratio 38.3 (12.0-20.0); Calcium, Blood 9.4 mg/dL (8.5-10.1); Creatinine, Blood 1.28 mg/dL (0.60-1.20); Magnesium, Blood 2.4 mg/dL (1.6-2.4); Potassium, Blood 4.5 mmol/L (3.5-5.5)
--- NOTE | 2022-08-31 18:32 | NUR ---
END OF SHIFT SUMMARY: PATIENT TRANSFERRED FROM ANOTHER ROOM TO ROOM 335 MID AFTERNOON. PATIENT ARRIVED VIA BED. PATIENT ALERT. DIFFICULTY TO FULLY ASSESS ORIENTATION RELATED TO PATIENT'S ABSENTEE-SHAWNEE. RIGHT EAR SEEMS TO HAVE MORE FUNCTIONING THAN LEFT. PATIENT FOLLOWED DIRECTIONS APPROPRIATELY. PATIENT REPORTS THAT HE WALKS INDEPENDENTLY AT HOME. PATIENT STABLE ON FEET AT BEDSIDE USING THE URINAL. PATIENT HAS A WET, PRODUCTIVE COUGH. SPUTUM IS WHITE/YELLOW. DIET TRANSITIONED TO MECHANICAL SOFT TO ACCOMODATE PATIENT'S LACK OF TEETH AND EASE OF CHEWING/BREATHING. PATIENT'S BREATHS EVEN AND REGULAR AT REST WHEN NO COUGHING IS PRESENT. WHEEZES PRESENT IN BOTH UPPER LOBES. PATIENT COMPLIANT WITH CARE PROVIDED. PATIENT REPORTS GOOD SUPPORT WITH HIS FRIEND ABDIRAHMAN AND HER .
--- NOTE | 2022-09-01 04:12 | NUR ---
SHIFT SUMMARY NO ACUTE CHANGES TO PT CONDITION. PT SLEEPING MOST OF NIGHT. PT IS EXTREMELY [place]. CALL LIGHT IS WITHIN HIS REACH. PT RECEIVING NS AT 75/HR. CALL LIGHT IS WITHIN PT REACH.
[2022-09-01 05:47] LABS: Hematocrit 32.6 % (37.0-53.0); Hemoglobin 10.9 g/dL (13.5-17.5); Mean Corpuscular HGB 31.3 pg (26.0-34.0); Mean Corpuscular HGB Conc 33.4 g/dL (31.5-36.5); Mean Corpuscular Volume 94 fL (80-100); Mean Platelet Volume 11.4 fL (9.1-12.4); NRBC ABSOLUTE 0.06 K/mm3 (0.00-0.02); Platelet Count 148 K/mm3 (150-400); RDW Standard Deviation 51.8 fL (35.1-46.3); Red Blood Cell Count 3.48 M/mm3 (4.30-5.90); White Blood Cell Count 5.73 K/mm3 (4.00-11.30)
[2022-09-01 06:11] LABS: Bun/Creatinine Ratio 52.3 (12.0-20.0); Calcium, Blood 9.5 mg/dL (8.5-10.1); Creatinine, Blood 1.07 mg/dL (0.60-1.20); Potassium, Blood 4.1 mmol/L (3.5-5.5)
[2022-09-01 06:18] LABS: BAND PERCENT MAN 15 % (0-8); BASOPHILS PERCENT MAN 0 % (0-2); EOSINOPHILS PERCENT MAN 0 % (0-6); LYMPHOCYTES PERCENT MAN 7 % (21-46); MONOCYTES PERCENT MAN 7 % (4-13); NEUTROPHILS ABSOLUTE MAN 4.92 K/mm3 (1.96-9.15); SEG NEUTROPHILS PERCENT MAN 71 % (41-73); TOTAL CELLS COUNTED 100
--- NOTE | 2022-09-01 18:06 | NUR ---
SHIFT SUMMARY: PT A&O X3, [place], AND PLEASANT. PT RECEVIED IV ABX WO ADVERSE EFFECTS OR SYMPTOMS. PT HAD NO COMPLAINTS OF PAIN THROUGHOUT THE SHIFT. PT SBA WITH STANDING USING THE URINAL. PT RIGHT AC IV LEAKING AND WAS REMOVED. NEW IV PLACED IN LEFT FOREARM WITH 2 ATTEMPTS. PT HAD DYSPNEA WITH EXTERTION, CONGESTIVE COUGH WITH SCANT AMOUNT OF SPUTUM. PT RESTING IN BED WITH CALL LIGHT WITHIN REACH.
--- NOTE | 2022-09-02 05:37 | NUR ---
ANGEL SLEPT WELL OVERNIGHT. WAKING ONLY TO REPOSITION, TO URINATE OR FOR NURSING ASSESSMENT OR MEDICATIONS. NO COMPLAINTS OF PAIN OR DISCOMFORT. LOOSE COUGH EACH TIME PATIENT WOULD CHANGE POSITIONS.. LUNG SOUNDS STILL COARSE WITH SCATTERED WHEEZES. CLEARS SLIGHTLY WITH COUGH
--- NOTE | 2022-09-02 16:55 | NUR ---
SHIFT SUMMARY; PATIENT WORKED WITH PT AND OT TODAY. WAS ABLE TO STAND AND WALK TO BATHROOM AND BACK WITH MINIMAL ASSIST. IT DOES TIRE HIM OUT QUITE A BIT AND RETURNS TO BED AND RESTS AFTER. HIS CAREGIVER ABDIRAHMAN CALLS [phone] SHE SAYS SHE NO LONGER WILL BE HIS CAREGIVER AND IF HE NEEDS INCREASED ASSIST WILL NEED ADDITIONAL CAREGIVERS FROM [place] TO ASSIST. HE IS AO X 4 TODAY. HAS PLEASANT AFFECT BUT IS EXTREMELY [place] AND REQUIRES ALMOST A YELL FOR HIM TO HERE. HIS LUNBS ARE COARSE AND DIM THROUGHOUT. HE HAS A NONPRODUCTIVE COUGH. PATIENT REMAINS ON 1 LITER O2. HE IS ABLE TO TURN HIMSELF Q 2 HOURS WHEN REMINDED TO ASSIST IN PREVENTING SKIN BREAKDOWN.
--- NOTE | 2022-09-03 03:30 | NUR ---
SHIFT SUMMARY NO OVERNIGHT EVENTS, NO CHANGE IN PT CONDITION. REMAINS ON 1L02, NONPRODUCTIVE WET COUGH. PT STANDS AT BEDSIDE TO USE URINAL. NEEDS REMINDING OF CALL LIGHT. BED ALARM ON. WILL CONTINUE TO MONITOR.
--- NOTE | 2022-09-03 18:36 | NUR ---
SHIFT SUMMARY; PATIENT REMAINS IN TB R/O PRECAUTIONS. HE IS ABLE TO STAND NEXT TO BED TO USE HIS URINAL WITHOUT ASSIST. HE REMAINS ON 1 LITER O2 VIA NASAL CANNULA. SEND OUT TB TEST NOT BACK YET. PATIENT RECEIVED HYDRALAZINE 10MG IVP X 1 FOR ELEVATED B/P OF 167/59. HE IS AO X 3 MOST OF DAY. ONLY BECOMING CONFUSED THIS EVENING PRIOR TO SHIFT CHANGE WHEN HE WANTED SOMEONE TO TAKE HIS GLASSES TO THE STORE AND HE WOULD PAY FOR THEM TO BE FIXED. HE IS REORIENTED TO HOSPITAL AND IS CURRENLTY RESTING COMFORTABLY IN HIS BED WATCHING FOOTBALL. HIS LUNGS ARE DIMI AND MOIST SOUNDING HE HAS A PRODUCTIVE COUGH HOWEVER APPEARS TO SWALLOW MUCOUS RATHER THAN SPITTING IT INTO A [place]. HE FEEDS HIMSELF AND HAS NO DIFFICULTY MAKING HIS NEEDS KNOWN.
--- NOTE | 2022-09-04 03:40 | NUR ---
NIGHTSHIFT SUMMARY No acute changes to patient status, patient alert/orientedx3. Oxygen via NC, vitals stables. Impulsive at times, reminded patient to use call-light. Patient demonstrated how to use call-light, bed alarm activated & audible. Quantiferon TB test results pending, airborne isolation precautions in place. Will continue plan of care, awaiting TB results and discharge planning.
--- NOTE | 2022-09-04 03:41 | NUR ---
NIGHTSHIFT SUMMARY No overnight events, patient independent in room. Continues to report moderate abdominal pain. PRN Oxycodone used to manage pain, during night patient reported severe pain and requested IV Dilaudid. Bililary drain capped, dressing CDI. Vitals stable. Will continue plan of care.
--- NOTE | 2022-09-04 15:51 | NUR ---
SHIFT SUMMARY PT AWAKE, WATCHING TV AT START OF SHIFT AND THRU OUT MOST OF THE DAY. PT PLACED ON RA AT BEGINING OF DAY SHIFT WITH BIOX STAYING 95-96% ON RA. PT HAS BEEN USING URINAL AT BS NEEDED. LUNGS T/O COARSE WITH INSP/EXP WHEEZES. REPORTS FEELING BETTER TODAY. FRIEND ABDIRAHMAN, CALLED TO CK ON PT AND GET UPDATE. PT OK'D GIVING UPDATE TO ABDIRAHMAN SHE ASSISTS WITH HIS CARE AT HOME. DR PABLO STILL WAITING FOR LAB TEST RESULTS TO BE RETURNED. PT'S APPETITE IS POOR, EATING ONLY BITES OF FOOD, BUT HE DOES DRINK HIS ENSURE AND MILK WITH EVERY MEAL. NO C/O PAIN. DENIED FURTHER NEEDS AT THIS TIME. CALL LT IN REACH.
--- NOTE | 2022-09-05 09:50 | NUR ---
SUMMARY NO ACUTE CHANGES THIS SHIFT.
--- NOTE | 2022-09-05 17:55 | NUR ---
SHIFT SUMMARY- PT IS ALERT, PLESANT AND COOPERATIVE. HE IS IN ISOLATION FOR R/O TB. AWAITING QUANTIFERON TEST RESULTS. TOUCHED BASE WITH ABDIRAHMAN THE CAREGIVER TODAY AND LET HER KNOW WE WERE AWAITITNG TEST RESULTS. HE SLEPT THIS AFTERNOON. HE IS VERY [place]. RECIEVING TYLENOL FOR PAIN. HIS BED IS IN THE LOW POSITION AND CALL LIGHT IS WITHIN REACH.
--- NOTE | 2022-09-06 18:34 | NUR ---
SHIFT SUMMARY: PATIENT A&OX3, AND VERY [place]. FORGETFUL AT TIMES. PATIENT IS PLEASANT AND COOPERATIVE WITH CARE. PATIENT PARTICIPATE WITH OT TODAY. RECEIVED SHOWER THIS AM AND TOLERATED WELL. USES URINAL INDEPENDENTLY AT BEDSIDE. DENIED CP/CHEST DISCOMFORT. PATIENT ON RA WITH SPO2 ABOVE 93%. LUNGS COARSE, WITH FINE CRACKLES T/O. RECIEVED ALL SCHEDULED MEDS THIS SHIFT. VITAL SIGNS REVIEWED. IV TO L FOREARM SALINE LOCK. BED IN LOWEST POSITION, LOCKED AND ALARM ON FOR SAFETY. CALL LIGHT IN REACH.
--- NOTE | 2022-09-07 04:06 | NUR ---
SHIFT SUMMARY: PT A/O X 3, ONE ASSIST WITH WALKER AND GB. PT PLEASANT AND COOPERATIVE WITH CARE. PT HAD MILD GENERALIZED "ALL OVER" PAIN AT BEDTIME. TYLENOL GIVEN PER MAR AND EFFECTIVE IN TREATING PAIN. PT ON RA AT THIS TIME. RR E/U THROUGHOUT THE NIGHT. PT HAD NO CALLS OR COMPLAINTS THROUGH THE NIGHT.
--- NOTE | 2022-09-07 17:31 | NUR ---
SHIFT SUMMARY PTN AIRBORN ISOLATION FOR RULE OUT TB, REPEAT BLOOD DRAW DONE TODAY. PTN WAS STARTED ON MEDICATION FOR STOMACH GAS, ORDERED PRN. FIRST DOSE GIVEN AND EDUCATED ON PURPOSE AND THAT HE WILL NEED TO ASK FOR IT. PTN VOICED UNDERSTANDING. PTN VERY [place]. PTN IS A STANDBY ASSIST FOR WEAKNESS. SMALL AND FRAIL. CONTINENT, TO TOILET WITH ASSIST. BM THIS SHIFT. POOR DENTITION, MECHANICAL SOFT. CONTINUE TO MONITOR.
[2022-09-08 05:56] LABS: BASOPHILS ABSOLUTE AUTO 0.01 K/mm3 (0.00-0.23); BASOPHILS PERCENT AUTO 0 % (0-2); EOSINOPHILS ABSOLUTE AUTO 0.01 K/mm3 (0.00-0.68); EOSINOPHILS PERCENT AUTO 0 % (0-6); Hematocrit 33.8 % (37.0-53.0); Hemoglobin 11.5 g/dL (13.5-17.5); IMMATURE GRAN ABSOLUTE AUTO 0.13 K/mm3 (0.00-0.10); IMMATURE GRAN PERCENT AUTO 2 % (0-1); LYMPHOCYTES ABSOLUTE AUTO 1.89 K/mm3 (0.84-5.20); LYMPHOCYTES PERCENT AUTO 28 % (21-46); MONOCYTES ABSOLUTE AUTO 0.45 K/mm3 (0.16-1.47); MONOCYTES PERCENT AUTO 7 % (4-13); Mean Corpuscular Volume 91 fL (80-100); Mean Platelet Volume 12.1 fL (9.1-12.4); NEUTROPHILS ABSOLUTE AUTO 4.37 K/mm3 (1.96-9.15); NEUTROPHILS PERCENT AUTO 64 % (41-73); Platelet Count 198 K/mm3 (150-400); RDW Coefficient Variation 14.9 % (11.7-14.2); RDW Standard Deviation 49.2 fL (35.1-46.3); Red Blood Cell Count 3.71 M/mm3 (4.30-5.90); White Blood Cell Count 6.86 K/mm3 (4.00-11.30)
--- NOTE | 2022-09-08 06:04 | NUR ---
PT STILL ON AIRBORNE ISO FOR TB R/O. PT WAS STARTED ON RX FOR STOMACH GAS ON 09/07/22. PT IS VERY [place]. PT IS CONTINENT AND IS SBA FOR AMBULATION DUE TO GENERALIZED WEAKNESS. PT SLEPT FOR MAJORITY OF SHIFT. PT IS CURRENTLY RESTING WITH BED IN LOWEST POSITION AND CALL LIGHT WITHIN REACH.
[2022-09-08 06:17] LABS: Bun/Creatinine Ratio 44.5 (12.0-20.0); Calcium, Blood 8.7 mg/dL (8.5-10.1); Creatinine, Blood 0.85 mg/dL (0.60-1.20); Potassium, Blood 4.8 mmol/L (3.5-5.5)
[2022-09-08 15:08] LABS: QUANTIFERON MITOGEN VALUE 0.15 IU/mL (.); QUANTIFERON NIL VALUE 0.01 IU/mL (.); QUANTIFERON TB1 AG VALUE 0.01 IU/mL (.); QUANTIFERON-TB GOLD PLUS Indeterminate (Negative)
--- NOTE | 2022-09-08 18:13 | NUR ---
SHIFT SUMMARY PTN REMAINS IN ISOLATION FOR RULE OUT TB. NO ACUTE EVENTS. NO COMPLAINTS. PLAN TO TRANSFER TO A SNF AFTER RESULTS OF TB TEST IS BACK. CONTINUE TO MONITOR.
--- NOTE | 2022-09-09 08:15 | NUR ---
NO CHANGES OVERNIGHT. PATIENT ALERT,PLEASANT AND COOPERATIVE WITH CARE. DENIES ANY PAIN OR DISCOMFORT. VOIDING CLEAR YELLOW URINE PER URINAL
--- NOTE | 2022-09-09 17:45 | NUR ---
SHIFT SUMMARY PT A&OX4 AND IN PLEASENT MOOD T/O SHIFT. PT IN PRECAUTION DUE TO TB RULE OUT, LAB REDRAWN THIS SHIFT. CALL LIGHT W/IN REACH. TOLERATING PO INTAKE WELL. RA @ THIS TIME. VSS.
--- NOTE | 2022-09-10 06:42 | NUR ---
A/Ox4; CALM AND COOPERATIVE. VERY [place]. DENIES PAIN AT THIS TIME. AIRBORNE ISOLATION MAINTAINED FOR TB R/O. UPPER AIRWAY CTA, DIMIN BASES, SLIGHT EXP WHEEZE AT TIMES. OCCAISIONAL NON-PROD COUGH. ROOM AIR OVERNIGHT. SBA WITH WALKER. IND WITH URINAL IN BED. SLEEP PROMOTED. BED ALARM SET. CALL LIGHT IN REACH; ENCOURAGED TO MAKE NEEDS KNOWN.
--- NOTE | 2022-09-10 18:29 | NUR ---
SHIFT SUMMARY: NO ACUTE CHANGES THIS SHIFT. PATIENT HAS BEEN RESTING IN BED TO SHIFT. DENIED SOB. DENIED CP/CHEST DISCOMFORT. PATIENT RECEIVED SHOWER THIS PM. TOLERATED WELL AMBULATING TO BATHROOM AND BACK TO BED WITHOUT ANY SIGNS OF DISCOMFORT. PATIENT RECEIVED SCHEDULED MEDS THIS SHIFT. PROCARDIA MEDS WERE NOT GIVEN THIS AM D/T BP OF 100/69 WITH HR OF HR OF 77 BPM. PATIENT STILL ON AIRBORNE ISOLATION TO R/O TB. AWAITING FOR TB TEST RESULT. PLAN TO D/C PATIENT TO SNF. VITAL SIGNS REVIEWED. BED ALARM ON FOR SAFETY. CALL LIGHT IN REACH.
--- NOTE | 2022-09-11 02:48 | NUR ---
A/Ox4; CALM AND COOPERATIVE. VERY [place]. DENIES PAIN AT THIS TIME. AIRBORNE ISOLATION MAINTAINED FOR TB R/O. UPPER AIRWAY CTA, DIMIN BASES, OCCAISIONAL COUGH, ROOM AIR OVERNIGHT. SBA WITH WALKER. IND WITH URINAL IN BED. SLEEP PROMOTED. BED ALARM SET. CALL LIGHT IN REACH; ENCOURAGED TO MAKE NEEDS KNOWN.
--- NOTE | 2022-09-11 18:25 | NUR ---
SHIFT SUMMARY: NO ACUTE CHANGES THIS SHIFT. PATIENT PLEASANT AND COOPERATIVE WITH CARE. USES URINAL AT BEDSIDE INDEPENDENTLY. SCHEDULE AM DOSE OF PROCARDIA XL WERE NOT GIVEN D/T BP OF 102/72 WITH HR OF 87. IV TO LEFT FOREARM SALINE LOCKED. VITAL SIGNS REVIEWED. PATIENT STILL ON AIRBORNE ISOLATION TO R/O TB. AWAITING FOR QUANTIFRRON TEST RESULT. BED ALARM ON FOR SAFETY. CALL LIGHT IN REACH.
--- NOTE | 2022-09-12 07:08 | NUR ---
A/Ox4; CALM AND COOPERATIVE. VERY [place]. DENIES PAIN AT THIS TIME. AIRBORNE ISOLATION MAINTAINED FOR TB R/O; 3RD TEST ON 09/09 AND TAKES 4-6 DAYS PER MD NOTE. ROOM AIR. DIMIN BLL. OCCAISIONAL CONGESTED COUGH; MUSINEX GIVEN AND FLUIDS PROVIDED/ENCOURAGED. IND WITH URINAL AT BEDSIDE. SLEEP PROMOTED. CALL LIGHT IN REACH; ENCOURAGED TO MAKE NEEDS KNOWN.
--- NOTE | 2022-09-12 16:23 | NUR ---
SHIFT SUMMARY NO ACUTE CHANGES TO PRESENT THIS SHIFT. PT CONTINUES TO WAIT FOR TEST RESULTS TO D/C TO [facility]. PT ABLE TO URINAL AT BS. BED BATH AND LINEN CHANGE DONE TODAY. PT ABLE TO GO INTO SHOWER TOMORROW. NO C/O PAIN. DOES GET SOB WITH TOO MUCH ACTIVITY. REMAINS ON RA. NO C/O. VERY PLEASANT AND CO-OP WITH CARE. DENIES FURTHER NEEDS AT THIS TIME. CALL LT IN REACH.
[2022-09-13 06:21] LABS: Hematocrit 32.3 % (37.0-53.0); Hemoglobin 10.7 g/dL (13.5-17.5)
[2022-09-13 06:35] LABS: Creatinine, Blood 1.1 mg/dL (0.60-1.20); Potassium, Blood 4.7 mmol/L (3.5-5.5)
--- NOTE | 2022-09-13 07:50 | NUR ---
SHIFT SUMMARY; PT WITH NO ACUTE MEDICAL CHANGES THROUGHOUT THE NIGHT. PT RESTING IN BED FOR THE DURARTTION OF SHIFT, PT WAS KIND AND COOPERATIVE WITH CARE. PT USED CALL LIGHT APPROPRIATELY. PT USED BED SIDE URINAL THROUGHOUT THE NIGHT. PT CURRENTLY RESTING IN BED WITH THE BED IN THE LOWEST POSITION AND THE CALL LIGHT WITHIN REACH.
--- NOTE | 2022-09-13 18:44 | NUR ---
SHIFT SUMMARY PT A&O X4. VSS. PT WITH NO COMPLAINTS. PLEASANT & COOPERATIVE WITH ALL CARE. USES CALL LIGHT APPROPRIATELY. BED IN LOW POSITION AND CALL LIGHT WITHIN REACH. USES URINAL INDEPENDENTLY. NO CINICAL CHANGES NOTED. PT REMAINS IN TB ISO. PLAN IS TO R/O TB THEN TO TRANSFER TO SNF, [facility].
[2022-09-14 04:09] LABS: QUANTIFERON MITOGEN VALUE 1.03 IU/mL (.); QUANTIFERON NIL VALUE 0.01 IU/mL (.); QUANTIFERON TB1 AG VALUE 0.03 IU/mL (.); QUANTIFERON TB2 AG VALUE 0.04 IU/mL (.); QUANTIFERON-TB GOLD PLUS Negative (Negative)
--- NOTE | 2022-09-14 04:42 | NUR ---
SUMMARY: PATIENT DID WELL OVERNIGHT. VOIDING IN URINAL STANDING AT BEDSIDE. NO ACUTE EVENTS OVERNIGHT. VSS. PENDING TB TEST FOR PLACEMENT TO REHAB. PATIENT AOX4, PLEASANT WITH STAFF, CALLS APPROPRIATELY, COOPERATES WITH ALL CARE. O2 STABLE ON RA.
[2022-09-14] MEDS ORDERED: Ventolin/Prove6.7 GM INH (11:57)
[2022-09-14] MEDS ORDERED: GUAI600T33 PO (11:57)
[2022-09-14] MEDS ORDERED: FAMO20 PO (11:57)
[2022-09-14] MEDS ORDERED: IPRAT-ALBUT 0.5-3 ML INH (11:58)
[2022-09-14] MEDS ORDERED: SIME80CH PO (11:59)
[2022-09-14 14:09] LABS: SARS-Cov-2 (COVID-19) PCR, MMC NEGATIVE (NEGATIVE)
--- NOTE | 2022-09-14 14:51 | NUR ---
REPORT PASSED TO SASHA MEDRANO AT [facility]. TRANSPORT TO BE HERE AT 1600 PER DC LATHE HAND
--- NOTE | 2022-09-14 16:00 | NUR ---
DISCHARGE: TRANSFER HERE FOR PT AT 1350. PT LEFT FOR [facility] VIA WHEELCHAIR AT 1600
== END 2022-09-14 15:49 | DRG 871 ==
LOC: ER 09:02 → MEDS 11:50 → ERHOLD 11:50 → MEDS 16:38
PROVIDERS: Family Medicine; Internal Medicine; Nurse Practitioner Acute Care; ADMIT Student in an Organized Health Care Education/Training Program
DX: A41.9 Sepsis, unspecified organism (principal); E43 Unspecified severe protein-calorie malnutrition; J15.8 Pneumonia due to other specified bacteria; J96.21 Acute and chronic respiratory failure with hypoxia; N17.9 Acute kidney failure, unspecified; A15.0 Tuberculosis of lung; A31.9 Mycobacterial infection, unspecified; E87.20 Acidosis, unspecified; N18.4 Chronic kidney disease, stage 4 (severe); Z68.1 Body mass index [BMI] 19.9 or less, adult; J43.9 Emphysema, unspecified; F20.9 Schizophrenia, unspecified; E03.9 Hypothyroidism, unspecified; Z20.822 Contact with and (suspected) exposure to COVID-19; I12.9 Hypertensive chronic kidney disease with stage 1 through stage 4 chronic kidney disease, or unspecified chronic kidney disease; R10.9 Unspecified abdominal pain; D63.1 Anemia in chronic kidney disease; M54.50 Low back pain, unspecified; G89.29 Other chronic pain; Z86.16 Personal history of COVID-19; Z87.891 Personal history of nicotine dependence; Z88.5 Allergy status to narcotic agent; Z79.899 Other long term (current) drug therapy; Z88.8 Allergy status to other drugs, medicaments and biological substances
CPT/HCPCS: 0241U; 36415; 71045; 71250; 80048; 80053; 82803; 83605; 83735; 83880; 84145; 84484; 85014; 85018; 85025; 85027; 86480; 87040; 93005; 93010; 94640; 94664; 94760; 94762; 96365; 96375; 97110; 97116; 97162; 97166; 97530; 97535; 99285-25; A9270; J0360; J0456; J0696; J1644; J2405; J2920; J2930; J7030; J7050; J7120; J7512; U0004